=== PATIENT | female | born 1970 | race Caucasian/White ===

== ENCOUNTER 2017-01-17 17:15 | Emergency (ER) | payer OTHER ==
[~2017-01-17] VITALS: Ht 170.2 cm; Wt 82.4 kg
[2017-01-17 18:13] LABS: HEMATOCRIT 39.2 % (36.0-46.0); MCH 29.8 PG (29.0-34.0); MCHC 33.4 G/DL (30.0-36.0); MCV 89.1 FL (83-99); MEAN PLAT.VOLUME 10.7 uM^3 (9.5-12.4); PLATELET COUNT 236 K/uL (156-360); RBC DIS.WIDTH-CV 12.6 % (11.8-14.6); RBC DIS.WIDTH-SD 41.6 % (39-53)
[2017-01-17 18:22] LABS: CHLORIDE 100 mEq/L (99-109); POTASSIUM 3.2 mEq/L (3.7-5.4); SODIUM 136 mEq/L (136-147)
[2017-01-17 18:23] LABS: GLUCOSE 98 mg/dL (70-99)
[2017-01-17 18:25] LABS: ANION GAP 14 MEQ/L (2-14)
[2017-01-17 18:27] LABS: GFR ESTIMATE (CALCULATED) > 59 mL/min/
[2017-01-17 18:28] LABS: UREA NITROGEN (BUN) 11 mg/dL (9-23)
[2017-01-17 18:38] LABS: ADD MIUA? YES; BILIRUBIN NEGATIVE; BLOOD SMALL; COLOR YELLOW ((YELLOW)); GLUCOSE (STRIP) NEGATIVE; KETONES 80; LEUKOCYTES MODERATE; NITRITE NEGATIVE; PROTEIN (STRIP) 30; SPECIFIC GRAVITY 1.013 (1.000-1.030); UROBILINOGEN 0.2 MG/DL (0.2-1.0)
[2017-01-17 18:42] LABS: BACTERIA RARE /HPF; EPITHELIAL CELLS NONE SEEN /HPF; MUCUS TRACE /LPF; RED BLOOD CELLS 0-5 /HPF (0-5); UCUL ADDED? YES; WHITE BLOOD CELLS TNTC /HPF (0-5)
[2017-01-17 21:18] VITALS: BP 122/67
[2017-01-17] MEDS ORDERED: KEFLEX500 MG PO (21:19)
[2017-01-17] MEDS ORDERED: MOTRIN600 MG PO (21:19)
[2017-01-17] MEDS ORDERED: ZOFRAN4 MG PO (21:19)
== END 2017-01-17 21:18 | disposition home or self-care (01) ==
LOC: EME 17:15
DX: N39.0 Urinary tract infection, site not specified (principal)
CPT/HCPCS: 74176; 80048; 81003; 85027; 87077; 87086; 87186; 99281; 99285; J0696; J2405; J7030; J7050